=== PATIENT | female | born 1975 | race Hispanic/Latino ===

== ENCOUNTER 2024-11-04 21:58 | Emergency (ER) | payer OTHER ==
[~2024-11-04] VITALS: Ht 160 cm; Wt 113.4 kg
[2024-11-04 22:27] LABS: IMMATURE GRANULOCYTE ABSOLUTE 0.04 K/uL (0-1); NUCLEATED RED BLOOD CELLS 0.0 % (0.0-0.19); PLATELET COUNT (AUTO) 265 K/uL (130-400); RED BLOOD CELL COUNT(AUTO) 4.83 MIL/uL (4.00-5.50); RED CELL DISTRIBUTION WIDTH 13.8 % (11.0-15.5); WHITE BLOOD COUNT (AUTO) 9.8 K/uL (4.8-10.8)
[2024-11-04 22:38] LABS: CREATININE 0.7 mg/dL (0.5-1.0); GLOMERULAR FILTR. RATE CALC 107.0 mL/min (>90); GLUCOSE,RANDOM 89.0 mg/dL (70-105); SODIUM SERUM 137.0 mmol/L (136-145); UREA NITROGEN, BLOOD 11.0 mg/dL (7-18)
[2024-11-04 22:43] LABS: CREATINE KINASE, TOTAL 104.0 U/L (21-232)
--- NOTE | 2024-11-04 22:49 | EKG ---
[facility] Test Date: 2024-11-04 Test Time: 22:44:30 Pat Name: FABIO DEL TORO Department: [facility] Room: Gender: F Online Affiliate Marketing Manager: [id number] : 1975 Requested By: JODY NESBITT Order Number: [id number] Reading MD: Debra Rowley Measurements Intervals [place] Rate: 63 P: 23 TN: 137 QRS: 42 QRSD: 86 T: 32 QT: 392 QTc: 401 Interpretive Statements Sinus rhythm No previous ECG available for comparison Electronically Signed On 11-05-2024 08:32:21 CDT by Debra Rowley Please click the below link to view image of tracing.
[2024-11-04] MEDS: 0.9%NACL 1000ML 1,000 ML IV ONE (22:57)
[2024-11-04 23:01] VITALS: BP 131/77; PULSE 75; RESP 18; TEMP 98.8; O2SAT 99
[2024-11-04] MEDS: HYDROcodone/APAP 5/325 1 TAB TABLET PO ONE (23:44)
--- NOTE | 2024-11-04 23:45 | HMCIMG ---
EXAM: CR Chest, 1 view CLINICAL HISTORY: Dizziness. COMPARISON: None provided. FINDINGS: The lungs show no infiltrates or other acute findings. No pleural effusion or pneumothorax. The cardiomediastinal silhouette is within normal limits. No acute osseous abnormality. IMPRESSION: No acute cardiopulmonary pathology is evident. /Natalia
--- NOTE | 2024-11-04 23:45 | HMCIMG ---
EXAM: US for Deep Venous Thrombosis, left Lower Extremity. CLINICAL HISTORY: Leg Pain and Swelling. TECHNIQUE: Real-time ultrasound scan of the veins of the left lower extremity with color Doppler flow, spectral waveform analysis, and compression. COMPARISON: None provided. FINDINGS: DEEP VEINS: The common femoral, superficial femoral, and popliteal veins are echolucent and compressible. There is normal color Doppler flow throughout. The visualized calf veins appear patent. SOFT TISSUES: No popliteal fossa cyst or other abnormalities. IMPRESSION: No deep venous thrombosis is evident on left lower extremity examination. /[place]ldon
--- NOTE | 2024-11-05 00:18 | ERN ---
ED Note History of Present Illness Stated Complaint: C/O PAIN TO LEFT UPPER LEG; HX OF DVT TO LEFT LEG Chief Complaint: Lower Extremity Pain/Injury Time Seen by MD: 22:01 Time Seen by Midlevel: 22:01 Dictation: The patient is a 49-year-old female with a history of DVT on left lower leg who presents to the emergency department with complaints of left leg pain onset today. Patient reports that she spoke to her doctor who told her to come to the ER for further evaluation. Patient reports she has been compliant with her Eliquis. Denies any leg trauma. Denies any shortness of breath or chest pain. Reports occasional dizziness. Allergies: Coded Allergies: No Known Allergies (Unverified Allergy, Unknown, 11/04/24) Past Medical History Past Medical History: Other Additional Past Medical Hx: HX OF DVT Surgical History: Cholecystectomy, RN Note Reviewed/Agreed w/PFSH: Yes Review of System Dictation Constitutional: Negative for fever,chills, and weight loss Eyes: Negative for injury, pain,redness, and discharge ENT: Negative for injury,pain or swelling Cardiovascular: Negative for chest pain, palpitations, and edema Respiratory: Negative for shortness of breath, cough, and wheezing, Abdomen/GI: Negative for abdominal pain, nausea, vomiting, diarrhea, and constipation Back: Negative for injury and pain : Negative for injury, bleeding and discharge MS/Extremity: Positive for left lower extremity pain Skin: Negative for rash, and discoloration Neuro: Negative for headache, weakness, numbness, tingling, and seizure Psych: Negative for suicide ideation, homicidal ideation, and hallucinations Initial Vital Sign VS Vital Signs Date Time Temp Pulse Resp B/P (MAP) Pulse Ox O2 Delivery O2 Flow Rate FiO2 11/04/24 22:01 98.4 87 20 164/98 98 Room Air 11/04/24 23:01 0 21 Physical Exam Dictation Vital Signs reviewed General Appearance: Alert, oriented x 3, no acute distress, well developed, nour ished. Head and Face: non-traumatic. Eyes: PERRL, pink conjunctivas, eyelid no trauma, anterior chamber with arcus senilis. Ears: Pinnas intact and no signs of trauma or erythema ear canals clear and no discharge TM no erythema Nose: No discharge, no bleeding. Oropharynx: Mouth normal, tongue pink. pharynx clear,no erythema, tonsils no exudates, no abscesses noted, mucous memb jermain moist Neck: Supple, non-tender, no thyromegaly, no masses, no JVD, no bruits Breast:Deferred Chest:No tenderness, no crepitus, no paradoxical movement, no retractions Lungs:Clear, well-ventilated, symmetric, no rales, no wheezing, no rhonchi, no s tridor, good breath sounds bilaterally Heart: Regular rate, regular rhythm, no murmur, no gallops Vascular: no peripheral edema, dorsalis pedis 3+ bilaterally Abdomen: Soft, positive bowel sounds, nondistended, no guarding, nontender, no rebound, no masses no hepatomegaly, no splenomegaly, no Akers's sign, no hernias. Rectal: Deferred Genital: Deferred Neurological: Normal speech, motor function intact, sensory function intact Musculoskeletal: Neck nontender, full range of motion, back nontender, full range of motion, Extremities: nontender, full range of motion Skin: Color pink, dry, no turgor, no rash, no lacerations, no abrasions, no contusions. Lymphatic: Deferred Results (Laboratory/Radiology) Laboratory/Radiology Laboratory Tests Test 11/04/24 22:19 White Blood Count 9.8 K/uL (4.8-10.8) Red Blood Count 4.83 MIL/uL (4.00-5.50) Hemoglobin 13.9 g/dL (12.0-16.0) Hematocrit 42.5 % (36-48) Mean Corpuscular Volume 88.0 fL (79-99) Mean Corpuscular Hemoglobin 28.8 pg (27.0-33.0) Mean Corpuscular Hemoglobin Concent 32.7 g/dL (32.0-36.0) Red Cell Distribution Width 13.8 % (11.0-15.5) Platelet Count 265 K/uL (130-400) Mean Platelet Volume 9.7 fL (7.5-10.5) Immature Granulocyte % (Auto) 0.4 % (0-1) Neutrophils (%) (Auto) 64.1 % (40.0-77.0) Lymphocytes (%) (Auto) 24.3 % (21.0-51.0) Monocytes (%) (Auto) 9.0 % (3.0-13.0) Eosinophils (%) (Auto) 1.6 % (0.0-8.0) Basophils (%) (Auto) 0.6 % (0.0-5.0) Neutrophils # (Auto) 6.3 K/uL (1.8-7.7) Lymphocytes # (Auto) 2.4 K/uL (1.0-4.8) Monocytes # (Auto) 0.9 K/uL (0.1-1.0) Eosinophils # (Auto) 0.16 K/uL (0.00-0.70) Basophils # (Auto) 0.06 K/uL (0.00-0.20) Absolute Immature Granulocyte (auto 0.04 K/uL (0-1) Nucleated Red Blood Cells 0.0 % (0.0-0.19) Sodium Level 137 mmol/L (136-145) Potassium Level 3.8 mmol/L (3.5-5.1) Chloride Level 105 mmol/L (101-111) Carbon Dioxide Level 24 mmol/L (21-32) Blood Urea Nitrogen 11 mg/dL (7-18) Creatinine 0.7 mg/dL (0.5-1.0) Glomerular Filtration Rate Calc 107 mL/min (>90) Random Glucose 89 mg/dL (70-105) Total Calcium 8.8 mg/dL (8.5-10.1) Magnesium Level 1.80 mg/dL (1.80-2.40) Total Creatine Kinase 104 U/L (21-232) Troponin I High Sensitivity 4 ng/L (4-50) REASON: dizzy ORDERING PHYSICIAN: JODY NESBITT MARKET EDITOR PROCEDURE: CXR1VW - CHEST 1VW EXAM: CR Chest, 1 view CLINICAL HISTORY: Dizziness. COMPARISON: None provided. FINDINGS: The lungs show no infiltrates or other acute findings. No pleural effusion or pneumothorax. The cardiomediastinal silhouette is within normal limits. No acute osseous abnormality. IMPRESSION: No acute cardiopulmonary pathology is evident. /[place] REASON: left lower leg ORDERING PHYSICIAN: JDOY NESBITT [facility] PROCEDURE: VENOUS UNI - US VENOUS DOPPLER UNILATERAL EXAM: US for Deep Venous Thrombosis, left Lower Extremity. CLINICAL HISTORY: Leg Pain and Swelling. TECHNIQUE: Real-time ultrasound scan of the veins of the left lower extremity with color Doppler flow, spectral waveform analysis, and compression. COMPARISON: None provided. FINDINGS: DEEP VEINS: The common femoral, superficial femoral, and popliteal veins are echolucent and compressible. There is normal color Doppler flow throughout. The visualized calf veins appear patent. SOFT TISSUES: No popliteal fossa cyst or other abnormalities. IMPRESSION: No deep venous thrombosis is evident on left lower extremity examination. /[place] Labs Reviewed?: Yes EKG: (+) rhythm (Sinus) EKG Comment: Date:11/04/2024 Time:2243 Ventricular rate:63 MA interval:137 QRS duration:86 QT/QTc:392/401 EKG interpretation: Sinus rhythm Reviewed by ED Attending no STEMI ED Course ED Course Orders Procedure Category Date Status Time Cbc With Differential LAB 11/04/24 Complete 22:14 Chest 1vw RAD 11/04/24 Resulted 22:14 12 Lead Ekg Tracing- EKG 11/04/24 Complete Technical 22:14 0.9%Nacl 1000ml (Ns PHA 11/04/24 Complete 1000ml) 22:30 Magnesium LAB 11/04/24 Complete 22:14 Creatine Kinase, Total LAB 11/04/24 Complete 22:14 Troponin I High LAB 11/04/24 Complete Sensitivity 22:14 Basic Metabolic Panel LAB 11/04/24 Complete 22:14 Us Venous Doppler US 11/04/24 Resulted Unilateral 22:14 Hydrocodone/Apap PHA 11/04/24 Complete 5/325 ([place] 5/325mg) 23:30 Current Medications Medications (Trade) Dose Ordered Sig/De Route PRN Reason Start Time Stop Time Status Last Admin Dose Admin Acetaminophen/ Hydrocodone Bitart (NORco 5/325MG) 1 tab ONCE ONCE PO 11/04/24 23:30 11/04/24 23:31 DC Sodium Chloride 1,000 ml @ 0 mls/hr ONCE ONCE IV 11/04/24 22:30 11/04/24 22:31 DC 11/04/24 22:57 Vital Signs Date Time Temp Pulse Resp B/P (MAP) Pulse Ox O2 Delivery O2 Flow Rate FiO2 11/04/24 23:01 98.8 75 18 131/77 99 Room Air* 0 21 8/26/25 22:01 98.4 87 20 164/98 98 Room Air Medical Decision Making MDM The patient is a 49-year-old female with a history of DVT on left lower leg who presents to the emergency department with complaints of left leg pain onset today. Patient reports that she spoke to her doctor who told her to come to the ER for further evaluation. Patient reports she has been compliant with her Eliquis. Denies any leg trauma. Denies any shortness of breath or chest pain. Reports occasional dizziness. CBC showed no leukocytosis, no anemia, chemistry showed no electrolyte imbalance, negative troponins, chest x-ray showed no acute pathology, ultrasound showed no acute pathology. On physical exam patient is neurologically intact nontoxic appearance. Stable vital signs. Patient with no tachycardia, no hypoxemia no significant swelling to lower extremities. Wells score for PE low risk. Patient already taking Eliquis. Reports feeling better after medication administration. Patient reports she feels better to be discharged and agrees to follow up with your primary doctor. Patient reports she has an appointment in a week. Patient advised to follow up with a in two days. Differential diagnosis: DVT, electrolyte imbalance, dehydration, tachyarrhythmias Need for hospitalization: Patient does not meet criteria for hospitalization. There are no social concerns with this patient. DX & DISP Disposition: Discharge Departure Impression: Primary Impression: Left leg pain Additional Impression: History of DVT (deep vein thrombosis) Condition: Stable Additional Instructions: Your labs were unremarkable. You will ultrasound was unremarkable. Please follow up with your primary doctor in 1-2 days. If anything worsens please return to ER. FOLLOW-UP WITH PRIMARY CARE PROVIDER IN 1 TO 2 DAYS. TAKE MEDICATIONS DIRECTED HERE IN THE EMERGENCY ROOM. OKAY TO CONTINUE HOME MEDICATIONS UNLESS OTHERWISE DISCUSSED DURING YOUR VISIT IN THE EMERGENCY ROOM TODAY. RETURN TO YOUR NEAREST EMERGENCY ROOM IF SYMPTOMS WORSEN OR IF THERE IS NO IMPROVEMENT. CALL 911 IF YOU NEED IMMEDIATE ASSISTANCE. TAKE TYLENOL [id number] NEEDED AND IF NO CONTRAINDICATIONS ARE PRESENT. INCREASE ORAL HYDRATION. A WOUND CULTURE OR URINE CULTURE WAS ORDERED HERE IN THE EMERGENCY ROOM DEPARTMENT PLEASE FOLLOW-UP WITH PRIMARY CARE PROVIDER AND ADVISE THEM TO GET REPEAT PORTS FROM OUR FACILITY. IF YOU HAD ANY ROSEMARY WRAP/SPLINTS THAT WERE APPLIED HERE, PLEASE DO NOT REMOVE THEM UNTIL YOU SEE YOUR PRIMARY CARE OR SPECIALTY. Referrals: SELF,REFERRAL (PCP) Time of Disposition: 00:18 I have reviewed the case, and I agree with, Diagnosis and Plan JODY NESBITT MARKET EDITOR Nov 05, 2024 00:18
== END 2024-11-05 00:23 | disposition home or self-care (01) ==
LOC: EDH 21:58
DX: M79.662 Pain in left lower leg (principal); Z90.49 Acquired absence of other specified parts of digestive tract; Z86.718 Personal history of other venous thrombosis and embolism; Z98.890 Other specified postprocedural states
CPT/HCPCS: 36415; 71045; 80048; 82550; 83735; 84484; 85025; 93005; 93971; 99285